=== PATIENT | female | born 1995 | race Caucasian/White ===

== ENCOUNTER 2017-02-13 11:35 | Emergency (ER) | payer OTHER ==
--- NOTE | 2017-02-13 11:39 | EDM.PDOC ---
ED HPI GENERAL MEDICAL PROBLEM - General Chief Complaint: Respiratory Problem Stated Complaint: [id number] SHARP PAIN ON BACK SIDE HARD TO BREATHE Time Seen by Provider: 02/13/17 11:39 Source of Information: Reports: Patient, Old Records, RN, RN Notes Reviewed History Limitations: Reports: No Limitations - History of Present Illness Onset: Today Duration: Constant Location: Reports: Back Quality: Reports: Ache, Sharp Severity: Severe Improves with: Reports: None Worsens with: Reports: Breathing, Movement Associated Symptoms: Reports: No Other Symptoms - Related Data Allergies Allergy/AdvReac Type Severity Reaction Status Date / Time azithromycin [From Zithromax] Allergy Rash Verified 02/13/17 11:40 Home Meds: Home Meds Glidess Fe 1 tab PO DAILY 01/26/14 [History] Ranitidine HCl [Zantac 75] 1 tab PO DAILY 02/13/17 [History] Past Medical History - Past Health History Medical/Surgical History: Denies Medical/Surgical History (seasonal allergies/ previously testes for asthma which was negative at that time.) Social & Family History - Family History Family Medical History: Noncontributory - Tobacco Use Second Hand Smoke Exposure: Yes - Alcohol Use Days Per Week of Alcohol Use: 0 - Recreational Drug Use Recreational Drug Use: No - Living Situation & Occupation Living situation: Reports: with Family Occupation: Employed ED ROS GENERAL - Review of Systems Review Of Systems: ROS reveals no pertinent complaints other than HPI. ED EXAM, GENERAL - Physical Exam Exam: See Below Exam Limited By: No Limitations General Appearance: Alert, WD/WN, No Apparent Distress, Anxious Nose: Normal Inspection Throat/Mouth: Normal Inspection, Normal Voice, No Airway Compromise Head: Atraumatic, Normocephalic Neck: Normal Inspection, Supple, Non-Tender, Full Range of Motion. No: Lymphadenopathy (L), Lymphadenopathy (R) Respiratory/Chest: No Respiratory Distress, No Accessory Muscle Use, Decreased Breath Sounds, Other (Tender to percussion of Rt lower thoracic chest) Cardiovascular: Regular Rate, Rhythm, Tachycardia GI/Abdominal: Normal Bowel Sounds, Soft, Non-Tender, No Organomegaly, No Distention, No Abnormal Bruit, No Mass Back Exam: Full Range of Motion. No: CVA Tenderness (L), CVA Tenderness (R) Extremities: Normal Inspection, Normal Range of Motion, Non-Tender, Normal Capillary Refill, No Pedal Edema Neurological: Alert, Oriented, CN II-XII Intact, Normal Cognition, Normal Gait, No Motor/Sensory Deficits Psychiatric: Normal Affect, Anxious, Tearful Skin Exam: Warm, Dry, Intact, Normal Color, No Rash Course - Vital Signs Last Recorded V/S: Last Vital Signs Temp 36.8 C 02/13/17 11:53 Pulse 123 H 02/13/17 11:53 Resp 18 02/13/17 11:53 BP 153/107 H 02/13/17 11:53 Pulse Ox 99 02/13/17 11:53 - Orders/Labs/Meds Orders: Active Orders 24 hr Category Date Time Status Incentive Spirometry [RT Incentive Spirometry] [RC] Care 02/13/17 13:14 Active ASDIRECTED Peripheral IV Care [RC] . DIRECTED Care 02/13/17 11:56 Active Sodium Chloride 0.9% [Saline Flush] Med 02/13/17 11:54 Active 10 ml FLUSH ASDIRECTED PRN Peripheral IV Insertion Adult [OM.PC] Stat Oth 02/13/17 11:54 Ordered Medication Orders Sodium Chloride (Saline Flush) 10 ml FLUSH ASDIRECTED PRN PRN Reason: Keep Vein Open Last Admin: 02/13/17 13:33 Dose: 10 ml Labs: Laboratory Tests 02/13/17 02/13/17 02/13/17 Range/Units 11:47 11:47 12:05 WBC 14.0 H (5.0-10.0) 10^3/uL RBC 5.10 (4.2-5.4) 10^6/uL Hgb 14.3 (12.0-16.0) g/dL Hct 42.5 (37.0-47.0) % MCV 83.3 (80-100) fL MCH 28.0 (27.0-34.0) pg MCHC 33.6 (33.0-35.0) g/dL Plt Count 337 (150-450) 10^3/uL Neut % (Auto) 66.9 (42.2-75.2) % Lymph % (Auto) 22.8 (20.5-50.1) % [place] % (Auto) 7.0 (2-8) % Eos % (Auto) 3.0 (1.0-3.0) % Baso % (Auto) 0.3 (0.0-1.0) % D-Dimer, Quantitative (0-400) ng/mL Sodium (135-145) mmol/L Potassium (3.6-5.0) mmol/L Chloride (101-111) mmol/L Carbon Dioxide (21.0-31.0) mmol/L Anion Gap BUN (7-18) mg/dL Creatinine (0.6-1.3) mg/dL Est Cr Clr Drug Dosing mL/min Estimated GFR (MDRD) BUN/Creatinine Ratio Glucose (74-105) mg/dL Calcium (8.4-10.2) mg/dl Total Bilirubin (0.2-1.0) mg/dL AST (10-42) IU/L ALT (10-60) IU/L Alkaline Phosphatase (42-121) IU/L Total Protein (6.7-8.2) g/dl Albumin (3.2-5.5) g/dl Globulin Albumin/Globulin Ratio Amylase (28-100) U/L Lipase (22-51) U/L Urine Color Yellow (YELLOW) Urine Appearance Slightly cloudy (CLEAR) Urine pH 6.0 (5.0-9.0) Ur Specific [place] 1.020 (1.005-1.030) Urine Protein Trace H (NEGATIVE) Urine Glucose (UA) Negative (NEGATIVE) Urine Ketones Negative (NEGATIVE) Urine Occult Blood Negative (NEGATIVE) Urine Nitrite Negative (NEGATIVE) Urine Bilirubin Negative (NEGATIVE) Urine Urobilinogen 0.2 (0.2-1.0) mg/dL Ur Leukocyte Esterase Small H (NEGATIVE) Urine RBC Not seen /HPF Urine WBC 5-10 H (0-5/HPF) /HPF Ur Epithelial Cells Many H /HPF Amorphous Sediment Not seen (0/HPF) /HPF Urine Bacteria Many H (0-FEW/HPF) /HPF Urine Mucus Few H /LPF Urine HCG, Qual Negative 02/13/17 02/13/17 Range/Units 12:05 12:05 WBC (5.0-10.0) 10^3/uL RBC (4.2-5.4) 10^6/uL Hgb (12.0-16.0) g/dL Hct (37.0-47.0) % MCV (80-100) fL MCH (27.0-34.0) pg MCHC (33.0-35.0) g/dL Plt Count (150-450) 10^3/uL Neut % (Auto) (42.2-75.2) % Lymph % (Auto) (20.5-50.1) % [place] % (Auto) (2-8) % Eos % (Auto) (1.0-3.0) % Baso % (Auto) (0.0-1.0) % D-Dimer, Quantitative 128 (0-400) ng/mL Sodium 138 (135-145) mmol/L Potassium 3.7 (3.6-5.0) mmol/L Chloride 102 (101-111) mmol/L Carbon Dioxide 22.0 (21.0-31.0) mmol/L Anion Gap 17.7 BUN 9 (7-18) mg/dL Creatinine 0.7 (0.6-1.3) mg/dL Est Cr Clr Drug Dosing 115.36 mL/min Estimated GFR (MDRD) > 60 BUN/Creatinine Ratio 12.85 Glucose 84 (74-105) mg/dL Calcium 9.5 (8.4-10.2) mg/dl Total Bilirubin 0.4 (0.2-1.0) mg/dL AST 17 (10-42) IU/L ALT 18 (10-60) IU/L Alkaline Phosphatase 59 (42-121) IU/L Total Protein 8.3 H (6.7-8.2) g/dl Albumin 4.1 (3.2-5.5) g/dl Globulin 4.2 Albumin/Globulin Ratio 0.98 Amylase 62 (28-100) U/L Lipase 18 L (22-51) U/L Urine Color (YELLOW) Urine Appearance (CLEAR) Urine pH (5.0-9.0) Ur Specific [place] (1.005-1.030) Urine Protein (NEGATIVE) Urine Glucose (UA) (NEGATIVE) Urine Ketones (NEGATIVE) Urine Occult Blood (NEGATIVE) Urine Nitrite (NEGATIVE) Urine Bilirubin (NEGATIVE) Urine Urobilinogen (0.2-1.0) mg/dL Ur Leukocyte Esterase (NEGATIVE) Urine RBC /HPF Urine WBC (0-5/HPF) /HPF Ur Epithelial Cells /HPF Amorphous Sediment (0/HPF) /HPF Urine Bacteria (0-FEW/HPF) /HPF Urine Mucus /LPF Urine HCG, Qual Meds: Medications Generic Name Dose Route Start Last Admin Trade Name Minna PRN Reason Stop Dose Admin Sodium Chloride 10 ml 02/13/17 11:54 02/13/17 13:33 Saline Flush FLUSH 10 ml ASDIRECTED PRN Administration Keep Vein Open Discontinued Medications Generic Name Dose Route Start Last Admin Trade Name Minna PRN Reason Stop Dose Admin Hydrocodone Bitart/Acetaminophen 1 tab 02/13/17 13:10 02/13/17 13:30 [place] 325-10 Mg PO 02/13/17 13:11 1 tab ONETIME ONE Administration Ceftriaxone Sodium 1 gm/ 50 mls @ 100 mls/hr 02/13/17 13:09 02/13/17 13:31 Sodium Chloride IV 02/13/17 13:38 100 mls/hr ONETIME ONE Administration Sodium Chloride 1,000 mls @ 999 mls/hr 02/13/17 13:14 02/13/17 13:31 Normal Saline IV 02/13/17 14:14 999 mls/hr .BOLUS ONE Administration Methylprednisolone Sodium Succinate 125 mg 02/13/17 13:09 02/13/17 13:31 Solu-Medrol IVPUSH 02/13/17 13:10 125 mg ONETIME ONE Administration Ondansetron HCl 4 mg 02/13/17 13:09 02/13/17 13:31 Zofran IV 02/13/17 13:10 4 mg ONETIME ONE Administration - Radiology Interpretation Free Text/Narrative:: CXR: no acute process per Rad. report. Departure - Departure Time of Disposition: 14:05 Disposition: Home, Self-Care 01 Condition: Fair Clinical Impression: Pleurisy without effusion, Atelectasis of right lung, Bacterial vaginosis - Discharge Information Instructions: Atelectasis, Adult, Bacterial Vaginosis, [id number], Pleurisy, [id number] Referrals: PCP,None [Primary Care Provider] - Forms: ED Department Discharge Additional Instructions: Rx: Flagyl 500mg Rx: Cefdinir 300mg Rx: [place] 5mg/325mg *Do not drive while under the influence of this medication. Use incentive spirometer every hour while awake until pain has completely resolved. Follow up in clinic in 2 to 3 days. - My Orders Last 24 Hours: My Active Orders 02/13/17 11:54 Sodium Chloride 0.9% [Saline Flush] 10 ml FLUSH ASDIRECTED PRN Peripheral IV Insertion Adult [OM.PC] Stat 02/13/17 11:56 Peripheral IV Care [RC] . DIRECTED 02/13/17 13:14 Incentive Spirometry [RT Incentive Spirometry] [RC] ASDIRECTED - Assessment/Plan Last 24 Hours: My Active Orders 02/13/17 11:54 Sodium Chloride 0.9% [Saline Flush] 10 ml FLUSH ASDIRECTED PRN Peripheral IV Insertion Adult [OM.PC] Stat 02/13/17 11:56 Peripheral IV Care [RC] . DIRECTED 02/13/17 13:14 Incentive Spirometry [RT Incentive Spirometry] [RC] ASDIRECTED
[2017-02-13 11:54] VITALS: BP 153/107
[2017-02-13] MEDS ORDERED: Sodium Chloride 0.9% 10 ML Syringe FLUSH PRN (11:54)
[2017-02-13 12:30] LABS: CHLORIDE,CL 102 mmol/L (101-111); SODIUM,NA 138 mmol/L (135-145)
[2017-02-13] MEDS ORDERED: methylPREDNISolone Sodium Succinate 125 MG/2 ML SDV IVPUSH ONE (13:09)
[2017-02-13] MEDS ORDERED: cefTRIAXone 1 GM in Sodium Chloride 0.9% 50 ML IV ONE (13:09)
[2017-02-13] MEDS ORDERED: Ondansetron 4 MG/2 ML SDV IV ONE (13:09)
[2017-02-13] MEDS ORDERED: Acetaminophen/HYDROcodone 325-10 MG Tab PO ONE (13:10)
[2017-02-13] MEDS ORDERED: Sodium Chloride 0.9% 1,000 ML IV ONE (13:14)
--- NOTE | 2017-02-13 14:37 | CR ---
Clinical history: 21-year-old female posterior right chest wall pain and shortness of breath. Interpretation: Slight kyphoscoliosis. Generalized poor inspiratory effort but normal cardiac silhouette without alveolar edema or dependent pleural effusion. No lung mass, hilar lymphadenopathy or focal lobar pneumonia. No atelectasis/collapse. No pneumothora x. CONCLUSION: No acute cardiopulmonary abnormality.
== END 2017-02-13 14:45 | disposition home or self-care (01) ==
LOC: DL.ED 11:35
DX: R09.1 Pleurisy (principal); J98.11 Atelectasis; N76.0 Acute vaginitis; Z79.899 Other long term (current) drug therapy; Z88.1 Allergy status to other antibiotic agents
CPT/HCPCS: 36415; 71020; 80053; 81001; 81025; 82150; 83690; 85025; 85379; 94010; 96365; 96375; 99285; A9270; J0696; J2405; J2930; J7030; J7050

== ENCOUNTER 2017-09-18 17:34 | Day surgery (SDC) | payer OTHER ==
[2017-09-18] MEDS ORDERED: Sodium Chloride 0.9% 10 ML Syringe FLUSH PRN ×2 (18:04→21:27)
[2017-09-18] MEDS ORDERED: Ondansetron 4 MG/2 ML SDV IV ONE ×2 (18:06→19:11)
[2017-09-18] MEDS ORDERED: Sodium Chloride 0.9% 1,000 ML IV ONE (18:06)
[2017-09-18] MEDS ORDERED: fentaNYL 100 MCG/2 ML SDV IVPUSH ONE (18:07)
--- NOTE | 2017-09-18 18:22 | EDM.PDOC ---
Scribed by Trista Carpenter 09/18/17 1822 for Marbin Quintana MD <Marbin Quintana - Last Filed: 09/18/17 18:44> ED HPI GENERAL MEDICAL PROBLEM - General Chief Complaint: Fever Stated Complaint: FLU LIKE SYMPTOMS. [phone] Time Seen by Provider: 09/18/17 17:46 Source of Information: Reports: Patient, RN, RN Notes Reviewed History Limitations: Reports: No Limitations - History of Present Illness INITIAL COMMENTS - FREE TEXT/NARRATIVE: Patient had onset of upper abdominal pain at about 5o'clock this morning and radiates around to the back. This is associated with nausea but no vomiting. She ate last evening at [email or web address].The pain is severe but waxes and wanes in intensity. Denies fever, chills, cough, sore throat, constipation or diarrhea. Onset: Today Duration: Getting Worse Location: Reports: Abdomen Quality: Reports: Ache Severity: Severe Improves with: Reports: None Worsens with: Reports: None Associated Symptoms: Reports: No Other Symptoms Upper Epigastric Pain Score (Numeric/FACES): 8 - Related Data Allergies Allergy/AdvReac Type Severity Reaction Status Date / Time azithromycin [From Zithromax] Allergy Rash Verified 02/13/17 11:40 Home Meds: Home Meds Albuterol [Ventolin HFA] 1 puff PO ASDIRECTED 09/18/17 [History] Desogestrel-Ethinyl Estradiol [Juleber 28 Day Tablet] 1 tab PO ASDIRECTED [History] Famotidine [Pepcid] 20 mg PO DAILY 09/18/17 [History] Past Medical History - Past Health History Medical/Surgical History: Denies Medical/Surgical History (seasonal allergies/ previously testes for asthma which was negative at that time.) Gastrointestinal History: Reports: GERD Genitourinary History: Reports: Other (See Below) Other Genitourinary History: hx of UTI not frequently Social & Family History - Family History Family Medical History: Noncontributory - Tobacco Use Smoking Status *Q: Never Smoker Second Hand Smoke Exposure: Yes - Caffeine Use Caffeine Use: Reports: Coffee - Alcohol Use Days Per Week of Alcohol Use: 0 - Recreational Drug Use Recreational Drug Use: No - Living Situation & Occupation Living situation: Reports: with Family Occupation: Employed ED ROS GENERAL - Review of Systems Review Of Systems: ROS reveals no pertinent complaints other than HPI. ED EXAM, GENERAL - Physical Exam Exam: See Below Exam Limited By: No Limitations General Appearance: Alert, No Apparent Distress, Obese, Other (uncomfortable but non-toxic appearing.) Eye Exam: Bilateral Eye: Normal Inspection (no scleral icterus) Nose: Normal Inspection, Normal Mucosa, No Blood Throat/Mouth: Normal Inspection, Normal Lips, Normal Teeth, Normal Gums, Normal Oropharynx, Normal Voice, No Airway Compromise Head: Atraumatic, Normocephalic Neck: Normal Inspection, Supple, Non-Tender, Full Range of Motion Respiratory/Chest: No Respiratory Distress, Lungs Clear, Normal Breath Sounds, No Accessory Muscle Use, Chest Non-Tender Cardiovascular: Regular Rate, Rhythm, Tachycardia GI/Abdominal: Normal Bowel Sounds, Soft, No Distention, Tender (acutely tender to palp. at RUQ and epigastric regions). No: Guarding, Rigid, Rebound (Female) Exam: Deferred Rectal (Female) Exam: Deferred Back Exam: Normal Inspection, Full Range of Motion. No: CVA Tenderness (L), CVA Tenderness (R) Extremities: Normal Inspection Neurological: Alert, Oriented, CN II-XII Intact, Normal Cognition, Normal Gait, No Motor/Sensory Deficits Psychiatric: Normal Affect, Normal Mood Skin Exam: Warm, Dry, Intact, Normal Color, No Rash Course - Vital Signs Last Recorded V/S: Last Vital Signs Temp 99 F 09/18/17 17:47 Pulse 121 H 09/18/17 17:47 Resp 14 09/18/17 17:47 BP 153/89 H 09/18/17 17:47 Pulse Ox 99 09/18/17 17:47 - Orders/Labs/Meds Orders: Active Orders 24 hr Category Date Time Status Peripheral IV Care [RC] . DIRECTED Care 09/18/17 18:06 Active CULTURE STREP A CONFIRMATION [] Stat Lab 09/18/17 18:05 Results STREP SCRN A RAPID W CULT CONF [] Stat Lab 09/18/17 18:05 Results Sodium Chloride 0.9% [Saline Flush] Med 09/18/17 18:04 Active 10 ml FLUSH ASDIRECTED PRN metroNIDAZOLE/Normal Saline [Flagyl 500 MG in NS 100 ML Med 09/18/17 18:58 Active ] 500 mg Premix Bag 100 bag IV ONETIME Peripheral IV Insertion Adult [OM.PC] Stat Oth 09/18/17 18:06 Ordered Medication Orders Metronidazole 500 mg/ Premix 100 mls @ 100 mls/hr IV ONETIME ONE Stop: 09/18/17 19:57 Last Admin: 09/18/17 19:23 Dose: 100 mls/hr Sodium Chloride (Saline Flush) 10 ml FLUSH ASDIRECTED PRN PRN Reason: Keep Vein Open Last Admin: 09/18/17 19:27 Dose: 10 ml Labs: Laboratory Tests 09/18/17 09/18/17 09/18/17 Range/Units 17:43 17:43 18:18 WBC 15.0 H (5.0-10.0) 10^3/uL RBC 5.03 (4.2-5.4) 10^6/uL Hgb 14.6 (12.0-16.0) g/dL Hct 41.5 (37.0-47.0) % MCV 82.5 (80-100) fL MCH 29.0 (27.0-34.0) pg MCHC 35.2 H (33.0-35.0) g/dL Plt Count 343 (150-450) 10^3/uL Neut % (Auto) 80.8 H (42.2-75.2) % Lymph % (Auto) 13.1 L (20.5-50.1) % [place] % (Auto) 5.2 (2-8) % Eos % (Auto) 0.7 L (1.0-3.0) % Baso % (Auto) 0.2 (0.0-1.0) % Sodium (135-145) mmol/L Potassium (3.6-5.0) mmol/L Chloride (101-111) mmol/L Carbon Dioxide (21.0-31.0) mmol/L Anion Gap BUN (7-18) mg/dL Creatinine (0.6-1.3) mg/dL Est Cr Clr Drug Dosing mL/min Estimated GFR (MDRD) BUN/Creatinine Ratio Glucose (74-105) mg/dL Calcium (8.4-10.2) mg/dl Total Bilirubin (0.2-1.0) mg/dL AST (10-42) IU/L ALT (10-60) IU/L Alkaline Phosphatase (42-121) IU/L Total Protein (6.7-8.2) g/dl Albumin (3.2-5.5) g/dl Globulin Albumin/Globulin Ratio Amylase (28-100) U/L Lipase (22-51) U/L Urine Color Yellow (YELLOW) Urine Appearance Turbid (CLEAR) Urine pH 5.5 (5.0-9.0) Ur Specific [place] 1.025 (1.005-1.030) Urine Protein Trace H (NEGATIVE) Urine Glucose (UA) Negative (NEGATIVE) Urine Ketones Negative (NEGATIVE) Urine Occult Blood Negative (NEGATIVE) Urine Nitrite Negative (NEGATIVE) Urine Bilirubin Negative (NEGATIVE) Urine Urobilinogen 0.2 (0.2-1.0) mg/dL Ur Leukocyte Esterase Negative (NEGATIVE) Urine RBC 0-5 /HPF Urine WBC 0-5 (0-5/HPF) /HPF Ur Epithelial Cells Many H /HPF Urine Bacteria Many H (0-FEW/HPF) /HPF Urinalysis Comment Urine HCG, Qual Negative 09/18/17 Range/Units 18:18 WBC (5.0-10.0) 10^3/uL RBC (4.2-5.4) 10^6/uL Hgb (12.0-16.0) g/dL Hct (37.0-47.0) % MCV (80-100) fL MCH (27.0-34.0) pg MCHC (33.0-35.0) g/dL Plt Count (150-450) 10^3/uL Neut % (Auto) (42.2-75.2) % Lymph % (Auto) (20.5-50.1) % [place] % (Auto) (2-8) % Eos % (Auto) (1.0-3.0) % Baso % (Auto) (0.0-1.0) % Sodium 135 (135-145) mmol/L Potassium 4.1 (3.6-5.0) mmol/L Chloride 102 (101-111) mmol/L Carbon Dioxide 22.0 (21.0-31.0) mmol/L Anion Gap 15.1 BUN 6 L (7-18) mg/dL Creatinine 0.5 L (0.6-1.3) mg/dL Est Cr Clr Drug Dosing 160.15 mL/min Estimated GFR (MDRD) > 60 BUN/Creatinine Ratio 12.00 Glucose 92 (74-105) mg/dL Calcium 9.3 (8.4-10.2) mg/dl Total Bilirubin 0.5 (0.2-1.0) mg/dL AST 23 (10-42) IU/L ALT 16 (10-60) IU/L Alkaline Phosphatase 57 (42-121) IU/L Total Protein 7.9 (6.7-8.2) g/dl Albumin 3.5 (3.2-5.5) g/dl Globulin 4.4 Albumin/Globulin Ratio 0.80 Amylase 60 (28-100) U/L Lipase 14 L (22-51) U/L Urine Color (YELLOW) Urine Appearance (CLEAR) Urine pH (5.0-9.0) Ur Specific [place] (1.005-1.030) Urine Protein (NEGATIVE) Urine Glucose (UA) (NEGATIVE) Urine Ketones (NEGATIVE) Urine Occult Blood (NEGATIVE) Urine Nitrite (NEGATIVE) Urine Bilirubin (NEGATIVE) Urine Urobilinogen (0.2-1.0) mg/dL Ur Leukocyte Esterase (NEGATIVE) Urine RBC /HPF Urine WBC (0-5/HPF) /HPF Ur Epithelial Cells /HPF Urine Bacteria (0-FEW/HPF) /HPF Urinalysis Comment Urine HCG, Qual Influenza A/B: negative Rapid Strep: negative Urine Clue Cell: POSITIVE Meds: Medications Generic Name Dose Route Start Last Admin Trade Name Freq PRN Reason Stop Dose Admin Metronidazole 500 mg/ Premix 100 mls @ 100 mls/hr 09/18/17 18:58 09/18/17 19: 23 IV 09/18/17 19:57 100 mls/hr ONETIME ONE Administration Sodium Chloride 10 ml 09/18/17 18:04 09/18/17 19:27 Saline Flush FLUSH 10 ml ASDIRECTED PRN Administration Keep Vein Open Discontinued Medications Generic Name Dose Route Start Last Admin Trade Name Freq PRN Reason Stop Dose Admin Fentanyl 50 mcg 09/18/17 18:07 09/18/17 18:23 Sublimaze IVPUSH 09/18/17 18:08 50 mcg ONETIME ONE Administration Sodium Chloride 1,000 mls @ 999 mls/hr 09/18/17 18:06 09/18/17 18:23 Normal Saline IV 09/18/17 19:06 999 mls/hr .BOLUS ONE Administration Iopamidol 100 ml 09/18/17 18:23 09/18/17 18:44 Isovue-300 (61%) IVPUSH 09/18/17 18:24 100 ml ONETIME ONE Administration Ondansetron HCl 4 mg 09/18/17 18:06 09/18/17 18:23 Zofran IV 09/18/17 18:07 4 mg ONETIME ONE Administration - Re-Assessments/Exams Free Text/Narrative Re-Assessment/Exam: 09/18/17 19:00HRS Care of pt transferred to Ashlee Johnson [facility] at 1900HR shift change with CT and labs pending. Departure - Departure Disposition: DC/Tfer to Other 70 Clinical Impression: Bacterial vaginosis, Cholecystitis - Discharge Information - My Orders Last 24 Hours: My Active Orders 09/18/17 18:58 metroNIDAZOLE/Normal Saline [Flagyl 500 MG in NS 100 ML] 500 mg Premix Bag 100 bag IV ONETIME - Assessment/Plan Last 24 Hours: My Active Orders 09/18/17 18:58 metroNIDAZOLE/Normal Saline [Flagyl 500 MG in NS 100 ML] 500 mg Premix Bag 100 bag IV ONETIME <JohnsonAshlee ricketts - Last Filed: 09/18/17 19:30> Course - Radiology Interpretation Free Text/Narrative:: Abdomen/Pelvis CT w/ contrast: IMPRESSION: 1. There is mild fatty liver replacement. 2. There is a small hiatal hernia. 3. Borderline thickened gallbladder wall without stones. If acute cholecystitis is suspected, gallbladder sonography may provide further information. Thank you for allowing us to participate in the care of your patient. Dictated and Authenticated by: Edmar Nunez MD 09/18/2017 7:10 PM Central Time ([place] & [place]) See rad report Departure - Departure Time of Disposition: 19:30 Condition: Fair I have read and agree with the documentation that has been completed regarding this visit. By signing this record, I attest that the documentation was completed in my physical presence and is an accurate record of the encounter.
[2017-09-18] MEDS ORDERED: Iopamidol 612 MG/ML 100 ML Bottle IVPUSH ONE (18:23)
[2017-09-18 18:45] LABS: CHLORIDE,CL 102 mmol/L (101-111); SODIUM,NA 135 mmol/L (135-145)
[2017-09-18] MEDS ORDERED: metroNIDAZOLE/Normal Saline 500 MG in Premix Bag 100 BAG IV ONE (18:58)
[2017-09-18] MEDS ORDERED: Succinylcholine 200 MG/10 ML MDV IV ONE (19:11)
[2017-09-18] MEDS ORDERED: fentaNYL 100 MCG/2 ML SDV IV ONE (19:11)
[2017-09-18] MEDS ORDERED: Propofol 200 MG/20 ML SDV IV ONE (19:11)
[2017-09-18] MEDS ORDERED: Rocuronium 50 MG/5 ML Vial IV ONE (19:11)
[2017-09-18] MEDS ORDERED: Dexamethasone 4 MG/ML SDV IV ONE (19:11)
[2017-09-18] MEDS ORDERED: Neostigmine Methylsulfate 10 MG/10 ML MDV IV ONE (19:11)
[2017-09-18] MEDS ORDERED: Glycopyrrolate 0.2 MG/ML 2 ML SDV IV ONE (19:11)
[2017-09-18] MEDS ORDERED: Midazolam 1 MG/ML 2 ML SDV IV ONE (19:11)
[2017-09-18] MEDS ORDERED: Ketorolac 30 MG/ML SDV IVPUSH ONE (19:11)
--- NOTE | 2017-09-18 20:13 | HP ---
INTRODUCTION: This 22-year-old female presents to the emergency room with significant right upper quadrant abdominal pain, nausea, and some vomiting. She has had pain off and on in the epigastric and back area over the last few days. However, today, it became more significant in the right upper quadrant in the subcostal region. Laboratory work in the emergency room showed a white blood cell count of 15,000 indicating infection, and she has a CAT scan that shows a markedly thick-walled gallbladder. The rest of the CAT scan is normal. PAST MEDICAL HISTORY: ALLERGIES: She does have an allergy to medicine, but cannot remember of and what that is. CURRENT MEDICATIONS: Inhaler, she uses every night and control pills. PRIOR SURGICAL HISTORY: None. FAMILY HISTORY AND SOCIAL HISTORY: She is . She lives here in [place]. Does not smoke. 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 REVIEW OF SYSTEMS: Positive for some mild asthma, otherwise normal. PHYSICAL EXAMINATION: HEENT: Normal. She wears glasses and sees adequately. Chest: Lungs are clear bilaterally to auscultation. Heart: Normal sinus rhythm without murmur. Abdomen: Tender in the right upper quadrant to palpation. The rest of the abdomen is normal. She shows no evidence of rebound or no evidence of hernias. Extremities: Have good range of motion. No edema. Neurologic: Grossly intact. ASSESSMENT: Acute cholecystitis. PLAN: I discussed the risks, benefits, and expected outcomes of a laparoscopic cholecystectomy with her, her , and her mother. She, I think, warrants an urgent operation for this. I did discuss with the thickness of the gallbladder. It could need to be converted to an open procedure, that will be an intraoperative decision that I make. I am going to start some IV Flagyl on her. The operating crew was called in and will proceed this evening. [facility] /[id number]
[2017-09-18] MEDS ORDERED: Morphine 2 MG/ML Syringe IVPUSH PRN (21:23)
[2017-09-18] MEDS ORDERED: Albuterol 6.7 GM Inhaler INH PRN (21:25)
[2017-09-18] MEDS: Acetaminophen/oxyCODONE 325-5 MG Tab PO PRN (22:11)
[2017-09-18] MEDS: Ondansetron 4 MG/2 ML SDV IV SCH (22:12)
--- NOTE | 2017-09-19 00:52 | OR ---
DATE: 09/18/2017 PREOPERATIVE DIAGNOSIS: Acute cholecystitis. POSTOPERATIVE DIAGNOSIS: Acute cholecystitis. PROCEDURE PERFORMED: Laparoscopic cholecystectomy. ANESTHESIA: General. ESTIMATED BLOOD LOSS: 100 mL. SPECIMEN: Gallbladder and stones. INDICATION FOR PROCEDURE: This 22-year-old female has significant right upper quadrant pain and elevated white blood cell count of 15,[address] scan that shows a markedly thick-walled gallbladder. FINDINGS: Markedly thick-walled gallbladder and 2 marble-sized stones within the gallbladder with moderate edema, otherwise normal. PROCEDURE IN DETAIL: After adequate preparation, trocars were placed under direct vision. The abdomen was insufflated, and the gallbladder identified. This was distended and thick enough that I could not grab the gallbladder without it being aspirated. A needle was placed within the gallbladder, and 60 mL of purulent-appearing bile was aspirated from the gallbladder, and the omental adhesions around Ege's pouch were dissected free. She did seem to have an impacted stone within Gee's pouch; however, it made the cystic triangle structures a little bit difficult to dissect free. I made an extra effort to elevate the gallbladder both laterally and medially at least detention off the liver bed and then dissected down to Gee's pouch, and just distal to that, a stone blocking the cystic duct. I was able to see that this was a single duct, and this was then triply clipped and divided. The cystic artery was then also clipped and the proximal end bovied. The gallbladder was taken off the liver bed using blunt, sharp, and Bovie dissection. There was a moderate amount of edema within the gallbladder bed and wall of the gallbladder all the way to the fundus of the gallbladder. The gallbladder once off the liver bed was placed in retrieval bag and brought out through the epigastric trocar site. The right upper quadrant was irrigated with saline and suctioned clear. The abdomen was desufflated, and the skin closed with Monocryl. [facility] /[id number]
[2017-09-19] MEDS ORDERED: Ondansetron 4 MG/2 ML SDV IV SCH (05:00)
[2017-09-19] MEDS ORDERED: Morphine 2 MG/ML Syringe IVPUSH PRN (05:06)
[2017-09-19] MEDS: Ondansetron 4 MG/2 ML SDV IV SCH (06:14)
[2017-09-19 07:22] VITALS: BP 121/68
[2017-09-19] MEDS: Acetaminophen/oxyCODONE 325-5 MG Tab PO PRN (08:09)
--- NOTE | 2017-09-19 10:04 | PCM.SN ---
- Free Text/Narrative Note: Patient better this AM. Pain controlled. PO adqueate. Wounds clean. Requesting to go home, discharge instructions given. Rx for Percocet 5/325 #20 given for pain. Will FU in surgery clinic as needed for questions. May return to work on 10-01-17 without restrictions.
== END 2017-09-19 09:25 | disposition home or self-care (01) ==
LOC: DL.ED 17:34 → DL.SDS 19:10 → DL.MS 22:00 → DL.SDS 09-19 09:25
PROVIDERS: ATTEND Surgery
DX: K80.10 Calculus of gallbladder with chronic cholecystitis without obstruction (principal); K82.8 Other specified diseases of gallbladder; K21.9 Gastro-esophageal reflux disease without esophagitis; Z88.1 Allergy status to other antibiotic agents; Z88.8 Allergy status to other drugs, medicaments and biological substances; Z79.899 Other long term (current) drug therapy
CPT/HCPCS: 36415; 74177; 80053; 81001; 81025; 82150; 83690; 85025; 87081; 87430; 87804; 96361; 96365; 96375; 99285; A9270-GY; J0330; J1100; J1885; J2250; J2270; J2405; J2704; J2710; J3010; J3490; J7030; J7050; J7120; Q9967

== ENCOUNTER 2019-05-27 20:35 | Inpatient (IN) | payer OTHER ==
[2019-05-27] MEDS ORDERED: hydrOXYzine HCl 25 MG Tab PO ONE (21:13)
[2019-05-28] MEDS ORDERED: Sodium Chloride 0.9% 10 ML Syringe FLUSH PRN (00:49)
[2019-05-28] MEDS ORDERED: Misoprostol 400 MCG (4 X 100 MCG TAB) RECTAL PRN (00:49)
[2019-05-28] MEDS ORDERED: Lactated Ringers 1,000 ML IV ONE (00:49)
[2019-05-28] MEDS ORDERED: Lidocaine 1% 30 ML SDV INJECT PRN (00:49)
[2019-05-28] MEDS ORDERED: Carboprost Tromethamine 250 MCG/1 ML Amp IM PRN (00:49)
[2019-05-28] MEDS ORDERED: Tranexamic Acid 1,000 MG in Sodium Chloride 0.9% 100 ML IV PRN (00:49)
[2019-05-28] MEDS ORDERED: Methylergonovine 0.2 MG/1 ML Amp IM PRN (00:49)
[2019-05-28] MEDS ORDERED: Ondansetron 4 MG/2 ML SDV IV PRN (00:49)
[2019-05-28] MEDS ORDERED: Acetaminophen 325 MG Tab PO PRN (00:49)
[2019-05-28] MEDS ORDERED: Lactated Ringers 1,000 ML IV SCH (01:00)
[2019-05-28] MEDS ORDERED: Oxytocin/Normal Saline 30 UNIT/500 ML BAG IV SCH (01:00)
[2019-05-28] MEDS ORDERED: Bupivacaine 0.75%/D5W 2 ML Amp ONE (01:10)
[2019-05-28] MEDS ORDERED: fentaNYL 100 MCG/2 ML SDV ONE (01:10)
[2019-05-28] MEDS ORDERED: EPINEPHrine 1 MG/1 ML Amp ONE (01:10)
[2019-05-28] MEDS ORDERED: Misoprostol 400 MCG (4 X 100 MCG TAB) ONE (01:29)
[2019-05-28] MEDS ORDERED: Carboprost Tromethamine 250 MCG/1 ML Amp ONE (01:30)
[2019-05-28] MEDS ORDERED: Lidocaine 1% 30 ML SDV ONE (01:30)
[2019-05-28] MEDS ORDERED: Methylergonovine 0.2 MG/1 ML Amp ONE (01:30)
[2019-05-28] MEDS ORDERED: Benzocaine/Menthol 20%-0.5% Spray 56 GM Canister TOP PRN (02:30)
[2019-05-28] MEDS ORDERED: Simethicone 80 MG Tab.Chew PO PRN (02:30)
[2019-05-28] MEDS ORDERED: Zolpidem 5 MG Tab PO PRN (02:30)
--- NOTE | 2019-05-28 02:42 | PCM.LDHP ---
L&D History of Present Illness - General Date of Service: 05/27/19 (Admit H&P) Admit Problem/Dx: Patient Status Order with Admit Dx/Problem 05/28/19 00:49 Patient Status [ADT] Routine Admission Diagnosis/Problem Admission Diagnosis/Problem Labor established 05/28/19 02:37 Romeo is a delightful 23yo WF @ 40w3d who presents with onset of labor. Seen in clinic earlier with possible prodromal labor and also pre-eclampsia watch. see notes for details. no bleeding or LOF. baby active. no pre-E sx. has had mild swelling and [place] lately. Source of Information: Patient, Family, Old Records, Provider, RN, Significant Other, Other (EPIC episode and notes) History Limitations: Reports: No Limitations - History of Present Illness Introduction:: as above Location, : Reports: Uterus Severity: Mild - Related Data Allergies/Adverse Reactions: Allergies Allergy/AdvReac Type Severity Reaction Status Date / Time azithromycin [From Zithromax] Allergy Rash Verified 05/27/19 20:57 Past Medical History - Past Health History Medical/Surgical History: Denies Medical/Surgical History HEENT History: Reports: Other (See Below) Other HEENT History: wisdom teeth removed Respiratory History: Reports: Asthma Gastrointestinal History: Reports: Cholelithiasis, GERD Genitourinary History: Reports: Other (See Below) Other Genitourinary History: hx of UTI 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 expecting girl. works at [employer] H&P Review of Systems - Review of Systems: Review Of Systems: Comprehensive ROS is negative, except as noted in HPI. L&D Exam - Exam Exam: See Below - Vital Signs Vital Signs: Last Vital Signs Temp 98.8 F 05/27/19 20:42 Pulse 77 05/27/19 22:30 Resp 18 05/27/19 22:30 BP 130/63 05/27/19 22:30 Pulse Ox Weight: 214 lb - OB Specific Contraction Duration (sec): 70-90 Contraction Frequency (min): 2-3 Contraction Intensity: Moderate Movement: Active Heart Tones: Present Heart Tones per Min: 140 Heart Rate (FHR) Variability: Moderate (6-25 bmp) Presentation: Right Occiput Anterior (KAROL) Estimated Weight: 8-8 1/2 lb - Exam General: Alert, Oriented HEENT: Conjunctiva Clear, EOMI, Hearing Intact, Mucosa Moist & [place], Nares Patent, Posterior Pharynx Clear, PERRLA Neck: Supple, Trachea Midline Lungs: Clear to Auscultation, Normal Respiratory Effort Cardiovascular: Regular Rate, Regular Rhythm GI/Abdominal Exam: Normal Bowel Sounds, Soft, Non-Tender, Pelvis Stable Rectal Exam: Normal Exam Genitourinary: Normal external exam, Cervical dilitation Back Exam: Normal Inspection, Full Range of Motion Extremities: Normal Inspection, Normal Range of Motion, Non-Tender, Normal Capillary Refill, Pedal Edema (trace) Skin: Warm, Dry, Intact Neurological: Cranial Nerves Intact, Reflexes Equal Bilateral Psychiatric: Alert, Normal Affect, Normal Mood - Patient Data Lab Results Last 24 hrs: pre-E labs done at clinic this afternoon: reassuring BUN 5 creat 0.7 AST 18, ALT 22 hgb 13.9 PLT 253 WBC 11.84 ua clear, no protein protein/creat ratio 0.2 see notes for further details. hmb - Problem List (1) Term SNOMED Code(s): 42811753 ICD Code: Z34.90 - ENCNTR FOR SUPRVSN OF NORMAL , UNSP, UNSP TRIMESTER Status: Acute Current Visit: Yes (2) Pre-eclampsia during in third trimester, antepartum SNOMED Code(s): 793091425, 257152966 ICD Code: O14.93 - UNSPECIFIED PRE-ECLAMPSIA, THIRD TRIMESTER Status: Acute Current Visit: Yes (3) Active labor at term SNOMED Code(s): 23342872 ICD Code: [id number] - Status: Acute Current Visit: Yes (4) Blood type O- SNOMED Code(s): 158769093 ICD Code: Z67.41 - TYPE O BLOOD, RH NEGATIVE Status: Acute Current Visit : Yes (5) Rubella immune SNOMED Code(s): 826559692 ICD Code: Z78.9 - OTHER SPECIFIED HEALTH STATUS Status: Acute Current Visit: Yes (6) Group B Streptococcus not isolated SNOMED Code(s): 620924004 ICD Code: [id number] - Status: Acute Current Visit: Yes (7) NST (non-stress test) reactive SNOMED Code(s): 313578556 ICD Code: Z36.89 - ENCOUNTER FOR OTHER SPECIFIED SCREENING Status : Acute Current Visit: Yes (8) Normal vaginal delivery SNOMED Code(s): 83434217, 346667070 ICD Code: O80 - ENCOUNTER FOR FULL-TERM UNCOMPLICATED DELIVERY Status: Acute Current Visit: Yes (9) Obstetric vaginal laceration with second degree perineal laceration SNOMED Code(s): 746456157, 426664553 ICD Code: O70.1 - SECOND DEGREE PERINEAL LACERATION DURING DELIVERY Status : Acute Current Visit: Yes Problem List Initiated/Reviewed/Updated: Yes Orders Last 24hrs: Active Orders 24 hr Category Date Time Status Patient Status [ADT] Routine ADT 05/28/19 00:49 Active Communication Order [RC] ASDIRECTED Care 05/28/19 00:49 Active Heart Tones [RC] PER UNIT ROUTINE Care 05/28/19 00:49 Active Notify Provider Vital Signs OB [RC] ASDIRECTED Care 05/28/19 00:49 Active Notify Provider [RC] PRN Care 05/28/19 00:49 Active OB Check [OM.PC] Click To Edit Care 05/27/19 21:13 Ordered POC Labs [RC] ASDIRECTED Care 05/28/19 00:49 Active Pump Management, Intrathecal [RC] ASDIRECTED Care 05/28/19 00:51 Active Up ad Emily [RC] ASDIRECTED Care 05/28/19 00:49 Active Vital Signs [RC] PER UNIT ROUTINE Care 05/28/19 00:49 Active Regular Diet [DIET] Diet 05/28/19 Breakfast Ordered CBC W/O DIFF,HEMOGRAM [HEME] Routine Lab 05/30/19 05:11 Ordered Acetaminophen [Tylenol] Med 05/28/19 00:49 Active 650 mg PO Q4H PRN Benzocaine/Menthol [Dermoplast Pain Relief [place]] Med 05/28/19 02:30 Ordered See Dose Instructions TOP Q4H PRN Carboprost Tromethamine [Hemabate DS] Med 05/28/19 00:49 Active 250 mcg IM ASDIRECTED PRN Docusate Sodium [Colace] Med 05/28/19 02:30 Ordered 100 mg PO BID PRN Ibuprofen [Motrin] Med 05/28/19 02:30 Ordered 800 mg PO Q8H PRN Lactated Ringers [Ringers, Lactated] 1,000 ml Med 05/28/19 01:00 Active IV ASDIRECTED Lidocaine 1% [Xylocaine-MPF 1%] Med 05/28/19 00:49 Active 30 ml INJECT ASDIRECTED PRN Methylergonovine [Methergine] Med 05/28/19 00:49 Active 0.2 mg IM ASDIRECTED PRN Ondansetron [Zofran] Med 05/28/19 00:49 Active 4 mg IV Q4H PRN Oxytocin/Normal Saline [Pitocin in NS 30 UNIT/500 ML] Med 05/28/19 01:00 Active 30 unit in 500 ml IV TITRATE Vit with Ca/FA/Iron [ Plus Iron] Med 05/28/19 09:00 Ordered 1 each PO DAILY Simethicone Med 05/28/19 02:30 Ordered 80 mg PO Q4H PRN Sodium Chloride 0.9% [Saline Flush] Med 05/28/19 00:49 Active 10 ml FLUSH ASDIRECTED PRN Tranexamic Acid [Cyklokapron] 1,000 mg Med 05/28/19 00:49 Active Sodium Chloride 0.9% [Normal Saline] 100 ml IV ONETIME Zolpidem [Ambien] Med 05/28/19 02:30 Ordered 5 mg PO BEDTIME PRN miSOPROStoL [Cytotec] Med 05/28/19 00:49 Active 800 mcg RECTAL ASDIRECTED PRN Assess Lochia [WOMSER] Per Unit Routine Oth 05/28/19 02:33 Ordered Assess Uterine Involution [WOMSER] Per Unit Routine Oth 05/28/19 02:33 Ordered Breast Pump [WOMSER] Per Unit Routine Oth 05/28/19 02:33 Ordered Ice Therapy [OM.PC] Per Unit Routine Oth 05/28/19 02:33 Ordered Perineal Care [OM.PC] Per Unit Routine Oth 05/28/19 02:33 Ordered Saline Lock Insert [OM.PC] Routine Oth 05/28/19 00:49 Ordered Sitz Bath [OM.PC] Per Unit Routine Oth 05/28/19 02:33 Ordered Resuscitation Status Routine Resus Stat 05/28/19 00:49 Ordered Medication Orders Acetaminophen (Tylenol) 650 mg PO Q4H PRN PRN Reason: Pain (Mild 1-3) and fever Carboprost Tromethamine (Hemabate Ds) 250 mcg IM ASDIRECTED PRN PRN Reason: HEMORRHAGE Lactated Ringer's (Ringers, Lactated) 1,000 mls @ 125 mls/hr IV ASDIRECTED KIRBY Last Admin: 05/28/19 01:50 Dose: 125 mls/hr Oxytocin/Sodium Chloride (Pitocin In Ns 30 Unit/500 Ml) 30 unit in 500 mls @ 2 mls/hr IV TITRATE KIRBY; Protocol Last Admin: 05/28/19 01:53 Dose: 500 munits/min, 500 mls/hr Tranexamic Acid 1,000 mg/ (Sodium Chloride) 110 mls @ 660 mls/hr IV ONETIME PRN PRN Reason: Bleeding Lidocaine HCl (Xylocaine-Mpf 1%) 30 ml INJECT ASDIRECTED PRN PRN Reason: Perineal Repair Last Admin: 05/28/19 02:16 Dose: 30 ml Methylergonovine Maleate (Methergine) 0.2 mg IM ASDIRECTED PRN PRN Reason: Hemorrhage Misoprostol (Cytotec) 800 mcg RECTAL ASDIRECTED PRN PRN Reason: Hemorrhage Ondansetron HCl (Zofran) 4 mg IV Q4H PRN PRN Reason: Nausea/Vomiting Last Admin: 05/28/19 02:12 Dose: 4 mg Sodium Chloride (Saline Flush) 10 ml FLUSH ASDIRECTED PRN PRN Reason: Keep Vein Open Assessment/Plan Comment:: Assessment" 23yo primigravida @ 40w3d admitted with active labor pre-eclampsia mild with reassuring labs blood type O- Rubella immune GBS negative expecting girl hgb 13.9, PLT 253 NST reactive, reassuring on admit Plan: Routine admit orders monitor closely planning pain management/intrathecal hmb
--- NOTE | 2019-05-28 02:59 | PCM.DEL ---
L & D Note - General Info Date of Service: 05/28/19 (time of delivery: 148) Mother's Due Date: 05/24/19 (40w4d) - Delivery Note Labor: Spontaneous Delivery Outcome: Livebirth Delivery Method: Spontaneous Vaginal Delivery-Single Delivery Mode: Spontaneous Presentation: Right Occiput Anterior (KAROL) Nuchal Cord: Present Prep: Povidone-Iodine (Betadine Anesthesia Type: Local, Nitrous Oxide Anesthetic: Lidocaine (Xylocaine) 1% Plain Local Anesthetic Volume: Other (10ml total) Amniotic Fluid Description: Meconium Stained Episiotomy Type: None Laceration: 2nd Degree, Periurethral (1 figure of 8 stitch on right periurethral area for hemostatis with excellent results. ), Vaginal (posterior vaginal--normal midline repair, one periurethral on right placed hemostasis) Suture type: Vicryl Suture size: 3-0 Placenta: Intact, Expressed Cord: 3 Vessels Estimated Blood Loss: 350 Resuscitation Needed: No : Suctioned, Bulb Syringe, Stimulated, Warmed, [place] Used Provider: Jodi Almaraz Score 1 min: 8 Score 5 min: 9 Second Stage Interventions: Reports: Pushing Effectively, Pushing, Feet in Foot Rests Delivery Comments (Free Text/Narrative):: Delivered easily over 2nd degree posterior midline laceration in KAROL position with loop of cord over neck/shoulder. terminal meconium passed at delivery. strong cry at . baby to mother's chest for bonding and skin to skin contact 3vc, clamped X 2 by me, then cut by FOB Dick cord blood obtained. placenta intact, complete, mature fundus firm, [id number] lacs repaired in standard fashion under local anesthesia with excellent results. Romeo tolerated well. no complications. [facility] - General Info Date of Service: 05/28/19 (time of delivery 148) Admission Dx/Problem (Free Text): Patient Status Order with Admit Dx/Problem 05/28/19 00:49 Patient Status [ADT] Routine Admission Diagnosis/Problem Admission Diagnosis/Problem Labor established 05/28/19 02:37 Romeo is a delightful 23yo WF @ 40w3d who presents with onset of labor. Seen in clinic earlier with possible prodromal labor and also pre-eclampsia watch. see notes for details. no bleeding or LOF. baby active. no pre-E sx. has had mild swelling and [place] lately. - Patient Data Vitals - Most Recent: Last Vital Signs Temp 98.8 F 05/27/19 20:42 Pulse 77 05/27/19 22:30 Resp 18 05/27/19 22:30 BP 130/63 05/27/19 22:30 Pulse Ox Weight - Most Recent: 214 lb Med Orders - Current: Current Medications Acetaminophen (Tylenol) 650 mg PO Q4H PRN PRN Reason: Pain (Mild 1-3) and fever Benzocaine/Menthol (Dermoplast Pain Relief [place]) 0 gm TOP Q4H PRN PRN Reason: Perineal comfort measures Carboprost Tromethamine (Hemabate Ds) 250 mcg IM ASDIRECTED PRN PRN Reason: HEMORRHAGE Docusate Sodium (Colace) 100 mg PO BID PRN PRN Reason: Constipation Lactated Ringer's (Ringers, Lactated) 1,000 mls @ 125 mls/hr IV ASDIRECTED KIRBY Last Admin: 05/28/19 01:50 Dose: 125 mls/hr Oxytocin/Sodium Chloride (Pitocin In Ns 30 Unit/500 Ml) 30 unit in 500 mls @ 2 mls/hr IV TITRATE [facility]; Protocol Last Admin: 05/28/19 01:53 Dose: 500 munits/min, 500 mls/hr Tranexamic Acid 1,000 mg/ (Sodium Chloride) 110 mls @ 660 mls/hr IV ONETIME PRN PRN Reason: Bleeding Ibuprofen (Motrin) 800 mg PO Q8H PRN PRN Reason: Mild Pain or Fever Lidocaine HCl (Xylocaine-Mpf 1%) 30 ml INJECT ASDIRECTED PRN PRN Reason: Perineal Repair Last Admin: 05/28/19 02:16 Dose: 30 ml Methylergonovine Maleate (Methergine) 0.2 mg IM ASDIRECTED PRN PRN Reason: Hemorrhage Misoprostol (Cytotec) 800 mcg RECTAL ASDIRECTED PRN PRN Reason: Hemorrhage Ondansetron HCl (Zofran) 4 mg IV Q4H PRN PRN Reason: Nausea/Vomiting Last Admin: 05/28/19 02:12 Dose: 4 mg Prenat Multivit/Welder Operator/Iron/Folic Ac ( Plus Iron) 1 each PO DAILY KIRBY Simethicone (Simethicone) 80 mg PO Q4H PRN PRN Reason: Gas Sodium Chloride (Saline Flush) 10 ml FLUSH ASDIRECTED PRN PRN Reason: Keep Vein Open Zolpidem Tartrate (Ambien) 5 mg PO BEDTIME PRN PRN Reason: Insomnia Discontinued Medications Bupivacaine HCl/Dextrose (Marcaine 0.75% Spinal) Confirm Administered Dose 2 ml .ROUTE .STK-MED ONE Stop: 05/28/19 01:11 Last Admin: 05/28/19 02:48 Dose: Not Given Carboprost Tromethamine (Hemabate Ds) Confirm Administered Dose 250 mcg .ROUTE .STK-MED ONE Stop: 05/28/19 01:31 Last Admin: 05/28/19 02:48 Dose: Not Given Epinephrine HCl (Adrenalin) Confirm Administered Dose 1 mg .ROUTE .STK-MED ONE Stop: 05/28/19 01:11 Last Admin: 05/28/19 02:48 Dose: Not Given Fentanyl (Sublimaze) Confirm Administered Dose 100 mcg .ROUTE .STK-MED ONE Stop: 05/28/19 01:11 Last Admin: 05/28/19 02:48 Dose: Not Given Hydroxyzine HCl (Atarax) 50 mg PO ONETIME ONE Stop: 05/27/19 21:14 Last Admin: 05/27/19 21:35 Dose: 50 mg Lactated Ringer's (Ringers, Lactated) 1,000 mls @ 999 mls/hr IV BOLUS ONE Stop: 05/28/19 01:49 Last Admin: 05/28/19 01:15 Dose: 999 mls/hr Lidocaine HCl (Xylocaine-Mpf 1%) Confirm Administered Dose 30 ml .ROUTE .STK- MED ONE Stop: 05/28/19 01:31 Last Admin: 05/28/19 02:48 Dose: Not Given Methylergonovine Maleate (Methergine) Confirm Administered Dose 0.2 mg .ROUTE .STK-MED ONE Stop: 05/28/19 01:31 Last Admin: 05/28/19 02:48 Dose: Not Given Misoprostol (Cytotec) Confirm Administered Dose 400 mcg .ROUTE .STK-MED ONE Stop: 05/28/19 01:30 Last Admin: 05/28/19 02:48 Dose: Not Given Sufentanil Citrate (Sufenta) Confirm Administered Dose 50 mcg .ROUTE .STK-MED ONE Stop: 05/28/19 01:11 Last Admin: 05/28/19 02:48 Dose: Not Given - Problem List & Annotations (1) Term SNOMED Code(s): 33622442 Code(s): Z34.90 - ENCNTR FOR SUPRVSN OF NORMAL , UNSP, UNSP TRIMESTER Status: Acute Current Visit: Yes (2) Pre-eclampsia during in third trimester, antepartum SNOMED Code(s): 700700637, 203360046 Code(s): O14.93 - UNSPECIFIED PRE-ECLAMPSIA, THIRD TRIMESTER Status: Acute Current Visit: Yes (3) Active labor at term SNOMED Code(s): 89885973 Code(s): DXH1990 - Status: Acute Current Visit: Yes (4) Blood type O- SNOMED Code(s): 984592327 Code(s): Z67.41 - TYPE O BLOOD, RH NEGATIVE Status: Acute Current Visit: Yes (5) Rubella immune SNOMED Code(s): 938213695 Code(s): Z78.9 - OTHER SPECIFIED HEALTH STATUS Status: Acute Current Visit: Yes (6) Group B Streptococcus not isolated SNOMED Code(s): 655456611 Code(s): THW4611 - Status: Acute Current Visit: Yes (7) NST (non-stress test) reactive SNOMED Code(s): 269475756 Code(s): Z36.89 - ENCOUNTER FOR OTHER SPECIFIED SCREENING Status : Acute Current Visit: Yes (8) Normal vaginal delivery SNOMED Code(s): 75459131, 777590213 Code(s): O80 - ENCOUNTER FOR FULL-TERM UNCOMPLICATED DELIVERY Status: Acute Current Visit: Yes (9) Obstetric vaginal laceration with second degree perineal laceration SNOMED Code(s): 920620607, 681731939 Code(s): O70.1 - SECOND DEGREE PERINEAL LACERATION DURING DELIVERY Status: Acute Current Visit: Yes - Problem List Review Problem List Initiated/Reviewed/Updated: Yes - My Orders Last 24 Hours: My Active Orders 05/27/19 21:13 OB Check [OM.PC] Click To Edit 05/28/19 00:49 Patient Status [ADT] Routine Communication Order [RC] ASDIRECTED Heart Tones [RC] PER UNIT ROUTINE Notify Provider Vital Signs OB [RC] ASDIRECTED Notify Provider [RC] PRN POC Labs [RC] ASDIRECTED Up ad Emily [RC] ASDIRECTED Vital Signs [RC] PER UNIT ROUTINE Acetaminophen [Tylenol] 650 mg PO Q4H PRN Carboprost Tromethamine [Hemabate DS] 250 mcg IM ASDIRECTED PRN Lidocaine 1% [Xylocaine-MPF 1%] 30 ml INJECT ASDIRECTED PRN Methylergonovine [Methergine] 0.2 mg IM ASDIRECTED PRN Ondansetron [Zofran] 4 mg IV Q4H PRN Sodium Chloride 0.9% [Saline Flush] 10 ml FLUSH ASDIRECTED PRN Tranexamic Acid [Cyklokapron] 1,000 mg Sodium Chloride 0.9% [Normal Saline] 100 ml IV ONETIME miSOPROStoL [Cytotec] 800 mcg RECTAL ASDIRECTED PRN Saline Lock Insert [OM.PC] Routine Resuscitation Status Routine 05/28/19 00:51 Pump Management, Intrathecal [RC] ASDIRECTED 05/28/19 01:00 Lactated Ringers [Ringers, Lactated] 1,000 ml IV ASDIRECTED Oxytocin/Normal Saline [Pitocin in NS 30 UNIT/500 ML] 30 unit in 500 ml IV TITRATE 05/28/19 02:30 Benzocaine/Menthol [Dermoplast Pain Relief [place]] See Dose Instructions TOP Q4H PRN Docusate Sodium [Colace] 100 mg PO BID PRN Ibuprofen [Motrin] 800 mg PO Q8H PRN Simethicone 80 mg PO Q4H PRN Zolpidem [Ambien] 5 mg PO BEDTIME PRN 05/28/19 02:33 Assess Lochia [WOMSER] Per Unit Routine Assess Uterine Involution [WOMSER] Per Unit Routine Breast Pump [WOMSER] Per Unit Routine Ice Therapy [OM.PC] Per Unit Routine Perineal Care [OM.PC] Per Unit Routine Sitz Bath [OM.PC] Per Unit Routine 05/28/19 09:00 Vit with Ca/FA/Iron [ Plus Iron] 1 each PO DAILY 05/28/19 Breakfast Regular Diet [DIET] 05/30/19 05:11 CBC W/O DIFF,HEMOGRAM [HEME] Routine - Plan Plan:: Assessment" 23yo primigravida @ 40w3d admitted with active labor pre-eclampsia mild with reassuring labs blood type O- Rubella immune GBS negative expecting girl hgb 13.9, PLT 253 NST reactive, reassuring on admit Plan: Routine admit orders monitor closely planning pain management/intrathecal hmb Delivery: 05-28-19 @ 0149 , 2nd degree lac/repaired, KAROL viable female [place] 40w4d APGARs 8 & 9 BW 3740g/8lb 4oz bottle feeding. routine orders. likely home on PPD #2. hmb
[2019-05-28] MEDS: Ibuprofen 800 MG Tab PO PRN ×3 (03:27→20:10)
[2019-05-28] MEDS: Docusate Sodium 100 MG Cap PO PRN ×2 (09:43→20:10)
[2019-05-28] MEDS: Prenatal Multivitamin with Calcium/Folic Acid/Iron Tab PO SCH (09:43)
[2019-05-29] MEDS: Prenatal Multivitamin with Calcium/Folic Acid/Iron Tab PO SCH (08:23)
[2019-05-29] MEDS: Ibuprofen 800 MG Tab PO PRN (08:24)
[2019-05-29] MEDS: Docusate Sodium 100 MG Cap PO PRN (08:24)
[2019-05-29 09:12] VITALS: BP 140/89; PULSE 88
--- NOTE | 2019-05-29 11:36 | PCM.DCSUM1 ---
Discharge Summary - Hospital Course Free Text/Narrative:: 23yo g1 now P1 delivered @ 40w4d viable female ARA 8lb 4oz by wihtout complications. mild pre-eclampsia. APGARs 8 & 9. bottle feeding. requesting early discharge. exam WNL. HPI Initial Comments: 23yo presented with onset labor @ 40w3d. had mild pre-eclampsia. went on to deliver by without complications viable female . see note below and delivery note APGARs 8 & 9 8lb 4oz baby bottlefeeding Brief History: Delivered easily over 2nd degree posterior midline laceration in KAROL position with loop of cord over neck/shoulder. terminal meconium passed at delivery. strong cry at . baby to mother's chest for bonding and skin to skin contact. 3vc, clamped X 2 by me, then cut by SIMRAN Jennings. cord blood obtained. placenta intact, complete, mature. fundus firm, [id number]. lacs repaired in standard fashion under local anesthesia with excellent results. Jordyne tolerated well. no complications. b - Discharge Data Discharge Date: 05/29/19 (PPD #1) Discharge Disposition: Home, Self-Care 01 Condition: Good - Referral to Home Health Primary Care Physician: Jodi Almaraz MD - Discharge Diagnosis/Problem(s) (1) Term SNOMED Code(s): 52348460 ICD Code: Z34.90 - ENCNTR FOR SUPRVSN OF NORMAL , UNSP, UNSP TRIMESTER Status: Acute Current Visit: Yes (2) Pre-eclampsia during in third trimester, antepartum SNOMED Code(s): 316427037, 533890463 ICD Code: O14.93 - UNSPECIFIED PRE-ECLAMPSIA, THIRD TRIMESTER Status: Acute Current Visit: Yes (3) Active labor at term SNOMED Code(s): 70664512 ICD Code: WBO5199 - Status: Acute Current Visit: Yes (4) Blood type O- SNOMED Code(s): 772808971 ICD Code: Z67.41 - TYPE O BLOOD, RH NEGATIVE Status: Acute Current Visit : Yes (5) Rubella immune SNOMED Code(s): 444807665 ICD Code: Z78.9 - OTHER SPECIFIED HEALTH STATUS Status: Acute Current Visit: Yes (6) Group B Streptococcus not isolated SNOMED Code(s): 718072230 ICD Code: [id number] - Status: Acute Current Visit: Yes (7) NST (non-stress test) reactive SNOMED Code(s): 233512049 ICD Code: Z36.89 - ENCOUNTER FOR OTHER SPECIFIED SCREENING Status : Acute Current Visit: Yes (8) Normal vaginal delivery SNOMED Code(s): 91133101, 702553439 ICD Code: O80 - ENCOUNTER FOR FULL-TERM UNCOMPLICATED DELIVERY Status: Acute Current Visit: Yes (9) Obstetric vaginal laceration with second degree perineal laceration SNOMED Code(s): 072180229, 480983355 ICD Code: O70.1 - SECOND DEGREE PERINEAL LACERATION DURING DELIVERY Status : Acute Current Visit: Yes - Patient Summary/Data Hospital Course: course uneventful eating, ambulating, voiding well. bottle feeding afebrile with VSS fundus firm, flow decreasing, WNL no pre-eclampsia complications - Patient Instructions Diet: Usual Diet as Tolerated Activity: As Tolerated Showering/Bathing: May Shower Notify Provider of: Fever, Increased Pain, Swelling and Redness, Drainage, Nausea and/or Vomiting Other/Special Instructions: follow up 6 week PP check and sooner prn. - Discharge Plan *PRESCRIPTION DRUG MONITORING PROGRAM REVIEWED*: Not Applicable *COPY OF PRESCRIPTION DRUG MONITORING REPORT IN PATIENT CHARLIE: Not Applicable - Discharge Summary/Plan Comment DC Time >30 min.: No Discharge Summary/Plan Comment: cord blood O+, LETICIA negative. Romeo got RhoGam 05-28-19 routine discharge orders and instructions. all questions answered for family. Happy with care and plan. hmb - Patient Data Vitals - Most Recent: Last Vital Signs Temp 98.4 F 05/29/19 08:00 Pulse 88 05/29/19 08:00 Resp 16 05/29/19 08:00 BP 140/89 05/29/19 08:00 Pulse Ox Weight - Most Recent: 214 lb Lab Results - Last 24 hrs: Laboratory Results - last 24 hr 05/29/19 Range/Units 06:00 WBC 13.1 H (5.0-10.0) 10^3/uL RBC 3.82 L (4.2-5.4) 10^6/uL Hgb 11.5 L D (12.0-16.0) g/dL Hct 34.4 L (37.0-47.0) % MCV 90.1 D (80-100) fL MCH 30.1 (27.0-34.0) pg MCHC 33.4 (33.0-35.0) g/dL Plt Count 189 D (150-450) 10^3/uL Med Orders - Current: Current Medications Acetaminophen (Tylenol) 650 mg PO Q4H PRN PRN Reason: Pain (Mild 1-3) and fever Benzocaine/Menthol (Dermoplast Pain Relief [place]) 0 gm TOP Q4H PRN PRN Reason: Perineal comfort measures Last Admin: 05/28/19 03:27 Dose: 1 applic Carboprost Tromethamine (Hemabate Ds) 250 mcg IM ASDIRECTED PRN PRN Reason: HEMORRHAGE Docusate Sodium (Colace) 100 mg PO BID PRN PRN Reason: Constipation Last Admin: 05/29/19 08:24 Dose: 100 mg Lactated Ringer's (Ringers, Lactated) 1,000 mls @ 125 mls/hr IV ASDIRECTED KIRBY Last Admin: 05/28/19 01:50 Dose: 125 mls/hr Oxytocin/Sodium Chloride (Pitocin In Ns 30 Unit/500 Ml) 30 unit in 500 mls @ 2 mls/hr IV TITRATE KIRBY; Protocol Last Titration: 05/28/19 04:30 Dose: Infused Tranexamic Acid 1,000 mg/ (Sodium Chloride) 110 mls @ 660 mls/hr IV ONETIME PRN PRN Reason: Bleeding Ibuprofen (Motrin) 800 mg PO Q8H PRN PRN Reason: Mild Pain or Fever Last Admin: 05/29/19 08:24 Dose: 800 mg Lidocaine HCl (Xylocaine-Mpf 1%) 30 ml INJECT ASDIRECTED PRN PRN Reason: Perineal Repair Last Admin: 05/28/19 02:16 Dose: 30 ml Methylergonovine Maleate (Methergine) 0.2 mg IM ASDIRECTED PRN PRN Reason: Hemorrhage Misoprostol (Cytotec) 800 mcg RECTAL ASDIRECTED PRN PRN Reason: Hemorrhage Ondansetron HCl (Zofran) 4 mg IV Q4H PRN PRN Reason: Nausea/Vomiting Last Admin: 05/28/19 02:12 Dose: 4 mg Prenat Multivit/[employer] G[employer]/Iron/Folic Ac ( Plus Iron) 1 each PO DAILY KIRBY Last Admin: 05/29/19 08:23 Dose: 1 each Simethicone (Simethicone) 80 mg PO Q4H PRN PRN Reason: Gas Sodium Chloride (Saline Flush) 10 ml FLUSH ASDIRECTED PRN PRN Reason: Keep Vein Open Zolpidem Tartrate (Ambien) 5 mg PO BEDTIME PRN PRN Reason: Insomnia Discontinued Medications Bupivacaine HCl/Dextrose (Marcaine 0.75% Spinal) Confirm Administered Dose 2 ml .ROUTE .STK-MED ONE Stop: 05/28/19 01:11 Last Admin: 05/28/19 02:48 Dose: Not Given Carboprost Tromethamine (Hemabate Ds) Confirm Administered Dose 250 mcg .ROUTE .STK-MED ONE Stop: 05/28/19 01:31 Last Admin: 05/28/19 02:48 Dose: Not Given Epinephrine HCl (Adrenalin) Confirm Administered Dose 1 mg .ROUTE .STK-MED ONE Stop: 05/28/19 01:11 Last Admin: 05/28/19 02:48 Dose: Not Given Fentanyl (Sublimaze) Confirm Administered Dose 100 mcg .ROUTE .STK-MED ONE Stop: 05/28/19 01:11 Last Admin: 05/28/19 02:48 Dose: Not Given Hydroxyzine HCl (Atarax) 50 mg PO ONETIME ONE Stop: 05/27/19 21:14 Last Admin: 05/27/19 21:35 Dose: 50 mg Lactated Ringer's (Ringers, Lactated) 1,000 mls @ 999 mls/hr IV BOLUS ONE Stop: 05/28/19 01:49 Last Admin: 05/28/19 01:15 Dose: 999 mls/hr Lidocaine HCl (Xylocaine-Mpf 1%) Confirm Administered Dose 30 ml .ROUTE .STK- MED ONE Stop: 05/28/19 01:31 Last Admin: 05/28/19 02:48 Dose: Not Given Methylergonovine Maleate (Methergine) Confirm Administered Dose 0.2 mg .ROUTE .STK-MED ONE Stop: 05/28/19 01:31 Last Admin: 05/28/19 02:48 Dose: Not Given Misoprostol (Cytotec) Confirm Administered Dose 400 mcg .ROUTE .STK-MED ONE Stop: 05/28/19 01:30 Last Admin: 05/28/19 02:48 Dose: Not Given Sufentanil Citrate (Sufenta) Confirm Administered Dose 50 mcg .ROUTE .[facility] ONE Stop: 05/28/19 01:11 Last Admin: 05/28/19 02:48 Dose: Not Given
== END 2019-05-29 12:10 | disposition home or self-care (01) | DRG 807 ==
LOC: DL.OBCHECK 20:35 → DL.OB 05-28 00:49 → OBSVTOIN 05-28 01:49 → DL.MS 05-28 20:52
PROVIDERS: ADMIT Family Medicine; ATTEND Family Medicine
PROC: 10E0XZZ Delivery of Products of Conception, External Approach (ICD-10-PCS; principal; 2019-05-28)
PROC: 0KQM0ZZ Repair Perineum Muscle, Open Approach (ICD-10-PCS; 2019-05-28)
DX: O14.04 Mild to moderate pre-eclampsia, complicating childbirth (principal); Z37.0 Single live birth; O77.0 Labor and delivery complicated by meconium in amniotic fluid; Z3A.40 40 weeks gestation of pregnancy; O70.1 Second degree perineal laceration during delivery; Z88.1 Allergy status to other antibiotic agents; Z90.49 Acquired absence of other specified parts of digestive tract; Z28.82 Immunization not carried out because of caregiver refusal
CPT/HCPCS: 36415; 36430; 59409; 85027; 85461; 86850; 86900; 86901; A9270-GY; J2001; J2405; J2590; J2790; J7120

== ENCOUNTER 2022-11-06 07:49 | Inpatient (IN) | payer OTHER ==
[2022-11-06] MEDS ORDERED: Ondansetron 4 MG/2 ML SDV IVPUSH PRN (08:11)
[2022-11-06] MEDS ORDERED: Misoprostol 400 MCG (4 X 100 MCG TAB) RECTAL PRN (08:11)
[2022-11-06] MEDS ORDERED: Lidocaine 1% 30 ML SDV INJECT PRN (08:11)
[2022-11-06] MEDS ORDERED: Lactated Ringers 1,000 ML IV ONE (08:11)
[2022-11-06] MEDS ORDERED: Misoprostol 50 MCG (1/2 of 100 MCG) Tab VAG PRN (08:11)
[2022-11-06] MEDS ORDERED: Tranexamic Acid 1,000 MG in Sodium Chloride 0.9% 100 ML IV PRN (08:11)
[2022-11-06] MEDS ORDERED: Sodium Chloride 0.9% 10 ML Syringe FLUSH PRN (08:11)
[2022-11-06] MEDS ORDERED: Misoprostol 25 MCG (1/4 of 100 MCG) Tab VAG PRN (08:11)
[2022-11-06] MEDS ORDERED: Carboprost Tromethamine 250 MCG/1 ML Amp IM PRN (08:11)
[2022-11-06] MEDS ORDERED: Methylergonovine 0.2 MG/1 ML Amp IM PRN (08:11)
[2022-11-06] MEDS ORDERED: Acetaminophen 325 MG Tab PO PRN ×2 (08:11)
[2022-11-06] MEDS ORDERED: Oxytocin/Normal Saline 30 UNIT/500 ML BAG IV SCH ×2 (08:15)
[2022-11-06 08:25] LABS: HEMATOCRIT 40.1 % (37.0-47.0); MEAN CORPUSCULAR HEMOGLOBIN 31.1 pg (27.0-34.0); MEAN CORPUSCULAR HGB CONC 34.9 g/dL (33.0-35.0); MEAN CORPUSCULAR VOLUME 89.1 fL (80-100); RED BLOOD CELL COUNT 4.5 10^6/uL (4.2-5.4); WHITE BLOOD CELL COUNT,WBC 11.5 10^3/uL (5.0-10.0)
[2022-11-06 08:46] LABS: ALANINE AMINOTRANSFERASE,ALT 17 U/L (14-59); ALBUMIN 2.6 g/dL (3.4-5.0); ALKALINE PHOSPHATASE 127 U/L (46-116); ANION GAP 13.8 mEq/L (7-13); ASPARTATE AMNIOTRANSFERASE,AST 14 U/L (15-37); BILIRUBIN TOTAL 0.2 mg/dL (0.2-1.0); BLOOD UREA NITROGEN,BUN 3 mg/dL (7-18); BUN/CREATININE RATIO 5.4 (No establ ref range); CALCIUM 8.5 mg/dL (8.5-10.1); CARBON DIOXIDE,CO2 22 mmol/L (21-32); CHLORIDE,CL 104 mmol/L (98-107); CREATININE 0.56 mg/dL (0.55-1.02); GLUCOSE RANDOM 90 mg/dL (70-99); POTASSIUM,K 3.8 mmol/L (3.5-5.1); PROTEIN TOTAL,TP 6.7 g/dL (6.4-8.2); SODIUM,NA 136 mmol/L (136-145)
[2022-11-06 09:01] LABS: A/G RATIO 0.63; ESTIMATED GFR 129 mL/min (>=60)
[2022-11-06] MEDS: Labetalol 100 MG Tab PO SCH ×2 (11:55→20:32)
[2022-11-06 13:42] LABS: CREATININE,URINE RAND 42.43 mg/dL (No establ ref range); PROTEIN CREATININE RATIO,URINE 148.5 mg/g (<150.0); PROTEIN,URINE RANDOM 6.3 mg/dL (0.0-11.9)
[2022-11-06] MEDS ORDERED: hydrOXYzine HCl 25 MG Tab PO ONE (20:18)
[2022-11-07] MEDS: Lactated Ringers 1,000 ML IV SCH ×2 (03:26→06:38)
[2022-11-07] MEDS ORDERED: fentaNYL 100 MCG/2 ML SDV ONE (07:06)
[2022-11-07] MEDS ORDERED: Bupivacaine 0.25% 10 ML SDV ONE (07:06)
[2022-11-07] MEDS ORDERED: ePHEDrine 50 MG/ML SDV IVPUSH PRN (07:31)
[2022-11-07] MEDS ORDERED: Phenylephrine HCl In 0.9% NaCl 1 MG/10 ML Syringe IVPUSH PRN (07:31)
[2022-11-07] MEDS ORDERED: Ropivacaine 200 MG in Premix Bag 1 BAG EPIDUR SCH (07:45)
[2022-11-07] MEDS ORDERED: Witch Hazel Medicated Pads 100/Jar TOP PRN (09:59)
[2022-11-07] MEDS ORDERED: Sodium Chloride 0.9% 10 ML Syringe FLUSH PRN (09:59)
[2022-11-07] MEDS ORDERED: Acetaminophen 325 MG Tab PO PRN (09:59)
[2022-11-07] MEDS ORDERED: Misoprostol 400 MCG (4 X 100 MCG TAB) RECTAL PRN (09:59)
[2022-11-07] MEDS ORDERED: Tranexamic Acid 1,000 MG in Sodium Chloride 0.9% 100 ML IV PRN (09:59)
[2022-11-07] MEDS ORDERED: Carboprost Tromethamine 250 MCG/1 ML Amp IM PRN (09:59)
[2022-11-07] MEDS ORDERED: Simethicone 80 MG Tab.Chew PO PRN (09:59)
[2022-11-07] MEDS ORDERED: Docusate Sodium 100 MG Cap PO PRN (09:59)
[2022-11-07] MEDS ORDERED: Benzocaine/Menthol 20%-0.5% Spray 78 GM Cannister TOP PRN (09:59)
[2022-11-07] MEDS ORDERED: Oxytocin 10 Units/1 ML SDV IM PRN (09:59)
[2022-11-07] MEDS: Labetalol 100 MG Tab PO SCH (13:58)
[2022-11-07] MEDS: Ibuprofen 800 MG Tab PO PRN (16:07)
[2022-11-08 06:46] LABS: HEMATOCRIT 38.1 % (37.0-47.0); MEAN CORPUSCULAR HEMOGLOBIN 30.9 pg (27.0-34.0); MEAN CORPUSCULAR HGB CONC 34.1 g/dL (33.0-35.0); MEAN CORPUSCULAR VOLUME 90.5 fL (80-100); RED BLOOD CELL COUNT 4.21 10^6/uL (4.2-5.4)
[2022-11-08] MEDS ORDERED: Prenatal Multivitamin with Calcium/Folic Acid/Iron Tab PO SCH (09:00)
[2022-11-08] MEDS: Ibuprofen 800 MG Tab PO PRN (09:07)
[2022-11-08 16:24] VITALS: BP 134/81; PULSE 87
== END 2022-11-08 16:20 | disposition home or self-care (01) | DRG 807 ==
LOC: DL.OBCHECK 07:49 → DL.OB 08:11 → OBSVTOIN 11-07 09:38
PROVIDERS: ADMIT Family Medicine; ATTEND Family Medicine
PROC: 0KQM0ZZ Repair Perineum Muscle, Open Approach (ICD-10-PCS; principal; 2022-11-07)
PROC: 10907ZC Drainage of Amniotic Fluid, Therapeutic from Products of Conception, Via Natural or Artificial Opening (ICD-10-PCS; principal; 2022-11-07)
PROC: 3E0P7VZ Introduction of Hormone into Female Reproductive, Via Natural or Artificial Opening (ICD-10-PCS; principal; 2022-11-07)
PROC: 10E0XZZ Delivery of Products of Conception, External Approach (ICD-10-PCS; principal; 2022-11-07)
PROC: 3E033VJ Introduction of Other Hormone into Peripheral Vein, Percutaneous Approach (ICD-10-PCS; principal; 2022-11-07)
DX: O13.4 Gestational [pregnancy-induced] hypertension without significant proteinuria, complicating childbirth (principal); Z37.0 Single live birth; O24.420 Gestational diabetes mellitus in childbirth, diet controlled; O99.344 Other mental disorders complicating childbirth; O26.893 Other specified pregnancy related conditions, third trimester; O99.214 Obesity complicating childbirth; O70.1 Second degree perineal laceration during delivery; F32.A Depression, unspecified; F41.9 Anxiety disorder, unspecified; O99.824 Streptococcus B carrier state complicating childbirth; Z67.41 Type O blood, Rh negative; Z3A.37 37 weeks gestation of pregnancy; Z88.8 Allergy status to other drugs, medicaments and biological substances
CPT/HCPCS: 01967; 36415; 36430; 59409; 80053; 82570; 82947; 84156; 85027; 85461; A9270-GY; J2405; J2590; J2790; J2795; J7120